=== PATIENT | male | born 1950 | race Asian ===

== ENCOUNTER 2017-01-01 09:19 | Emergency (ER) | payer OTHER, MEDICARE ==
[~2017-01-01] VITALS: Ht 170.2 cm; Wt 90.7 kg
[~2017-01-01 09:19] MED LIST: GABA-531 PO
[2017-01-01 09:20] VITALS: BP 132/80; PULSE 75; RESP 17; TEMP 97.4; O2SAT 98
--- NOTE | 2017-01-01 09:20 | NUR ---
BROUGHT BACK TO BED #8 AND TRIAGED, REPORT GIVEN TO JAZZ
--- NOTE | 2017-01-01 09:28 | NUR ---
DR FLEMING AT BEDSIDE FOR EVALUATION
[2017-01-01] MEDS ORDERED: BACITRACIN 1 GM OINT TP ONE (09:45)
--- NOTE | 2017-01-01 09:55 | NUR ---
Patient given written and verbal discharge instructions and verbalizes understanding. ER MD discussed with patient the results and treatment provided. Given copies of tests performed in ER. Patient in stable condition. ID arm band removed. Patient educated on pain management and to follow up with PMD. Pain Scale 0/10. Opportunity for questions provided and answered.
== END 2017-01-01 09:56 | disposition home or self-care (01) ==
LOC: SED 09:19
DX: Z48.01 Encounter for change or removal of surgical wound dressing (principal)
CPT/HCPCS: 99283

== ENCOUNTER 2018-04-07 23:33 | Emergency (ER) | payer OTHER, MEDICARE ==
[~2018-04-07] VITALS: Ht 170.2 cm; Wt 90.7 kg
[2018-04-07 23:40] VITALS: BP_SYST 136
[2018-04-08 00:30] LABS: BASOPHILS % (AUTO) 0.9 % (0.0-2.0); EOSINOPHILS # (AUTO) 0.1 K/uL (0.0-0.4); EOSINOPHILS % (AUTO) 2.7 % (0.0-4.0); HEMOGLOBIN 14.3 g/dL (14.0-18.0); LYMPHOCYTES # (AUTO) 1.2 K/uL (1.0-5.5); LYMPHOCYTES % (AUTO) 22.2 % (20.5-51.5); MEAN CORPUSCULAR HEMOGLOBIN 31 pg (27-31); MEAN CORPUSCULAR HGB CONC 34 % (32-36); MEAN CORPUSCULAR VOLUME 90 fL (79.0-98.0); MONOCYTES # (AUTO) 0.6 K/uL (0.0-1.0); MONOCYTES % (AUTO) 11.4 % (1.7-9.3); NEUTROPHILS # (AUTO) 3.5 K/uL (1.8-7.7); NEUTROPHILS % (AUTO) 62.8 % (40.0-70.0); PLATELET COUNT (AUTO) 255 K/uL (130-430); RED BLOOD CELL COUNT(AUTO) 4.67 MIL/uL (4.2-6.2); RED CELL DISTRIBUTION WIDTH 13.7 % (9.0-15.0); WHITE BLOOD COUNT (AUTO) 5.4 K/uL (4.8-10.8)
[2018-04-08] MEDS ORDERED: CLINDAMYCIN HCL 150 MG CAPSULE PO ONE (00:30)
[2018-04-08] MEDS ORDERED: IBUPROFEN 800 MG TABLET PO ONE (00:30)
[2018-04-08 00:44] LABS: CALCIUM 8.6 mg/dL (8.4-11.0); CREATININE 1.05 mg/dL (0.55-1.30); POTASSIUM 4.2 mmol/L (3.5-5.1)
[2018-04-08 00:48] LABS: ALBUMIN 3.9 g/dL (3.4-4.8); TOTAL BILIRUBIN 0.7 mg/dL (0.0-1.0)
[2018-04-08 00:49] LABS: PROTHROMBIN TIME 10.4 SECS (9.5-12.5)
[2018-04-08 01:19] VITALS: BP_SYST 129
== END 2018-04-08 01:19 | disposition home or self-care (01) ==
LOC: SED 23:33
DX: L03.114 Cellulitis of left upper limb (principal); R52 Pain, unspecified
CPT/HCPCS: 36415; 71045; 80053; 84550-TC; 85025; 85610-TC; 85730-TC; 99285

== ENCOUNTER 2020-08-06 16:12 | Inpatient (IN) | payer OTHER, MEDICARE, SELFPAY ==
[2020-08-06] VITALS (9 sets, daily range): BP systolic 74–142
[~2020-08-06] VITALS: Ht 165.1 cm; Wt 83.9 kg
--- NOTE | 2020-08-06 16:12 | NUR ---
Placed in room 1. Placed on personnel monitor, blood pressure machine and pulse oximeter. To gown for exam. Side rails up. Report given to OMAR Galvan.
--- NOTE | 2020-08-06 16:13 | NUR ---
PT BIB ACLS AFTER INGESTING ROUNDUP WEED KILLER. PATIENT PLACED ON DIETARY SERVICES DIRECTOR, RT TONY AT , SUCTIONED ORAL SECRETIONS. PER EMS PATIENT DRANK HALF A BOTTLE OF ROUNDUP WEED KILLER(35 FLUID OZ. BOTTLE).
--- NOTE | 2020-08-06 16:13 | NUR ---
POISON CONTROL CONTACTED SPOKE WITH JENNIFER. INFORRMED JENNIFER PT INGESTED HALF A BOTTLE(35 OUNCE BOTTLE) OF ROUND-UP, ATTEMPTING SUICIDE. PER JENNIFER: "CONSIDER INTUBATION, ADMINISTER SUPPORT CARE, CONSULT GI, MONITOR CARDIAC RHYTHM. MADE DR WOLFE AWARE OF POISION CONTROL RECOMENDATIONS.
--- NOTE | 2020-08-06 16:15 | NUR ---
FAMILY ARRIVED TO WAITING AREA. PER , PT INGESTED ROUNDUP 2 HOURS AGO SUICIDE ATTEMPT.
--- NOTE | 2020-08-06 16:17 | NUR ---
Patient not known to be of DNR status. Patient medicated with 20 mg of ETOMODATE for sedation prior to placement of ET tube. Respiratory therapy at bedside prior to placement. Size 7.5 ET tube placed by DR WOLFE. Cuff inflated with air PER RT JIMENEZ. Auscultation of breath sounds over bilateral chest wall. ET tube secured with NOLASCO . O2 sats 98% pulse ox. PCXR ordered to check tube placement.
--- NOTE | 2020-08-06 16:20 | NUR ---
SUCCESSFUL INTUBATION BY DR WOLFE. ET TUBE 7.5 23CM@LIP. POSITIVE COLOR CHANGE ON CO2 DETECTOR. 98% HR79 RR11 BO148/81
--- NOTE | 2020-08-06 16:25 | NUR ---
Witnessed Propofol drip started at 5 mcg/kg/min.
--- NOTE | 2020-08-06 16:25 | NUR ---
IV PROPOFOL STARTED PER PROTOCOL 5 MCG/KG/MIN
[2020-08-06] MEDS ORDERED: TAMS-11 PO (16:28)
[2020-08-06] MEDS ORDERED: FLUD0.1T PO (16:28)
[2020-08-06] MEDS ORDERED: EZET10TA30 PO (16:28)
[2020-08-06] MEDS ORDERED: METO-540 PO (16:28)
[2020-08-06] MEDS ORDERED: FINA5TAB11 PO (16:28)
[2020-08-06] MEDS ORDERED: LORA-259 PO (16:28)
[2020-08-06] MEDS ORDERED: LOSA50TA28 PO (16:28)
[2020-08-06] MEDS ORDERED: ATOR10TA68 PO (16:28)
--- NOTE | 2020-08-06 16:28 | NUR ---
Medication reconciliation completed with information provided by EMS. Any prior medication reconciliation on file was reviewed and corrected.
[2020-08-06] MEDS ORDERED: NACL 0.9% 1,000 ML IV ONE ×2 (16:30→18:00)
[2020-08-06] MEDS ORDERED: PROPOFOL DRIP 100 ML IV ONE ×2 (16:30→16:44)
--- NOTE | 2020-08-06 16:30 | NUR ---
Witnessed Propofol drip titrated to 10 mcg/kg/min.
--- NOTE | 2020-08-06 16:30 | NUR ---
PT ATTEMPTING TO GET OUT OF BED. IV PROPOFOL INCREASED PER PROTOCOL TO 10 MCG/KG/MIN
--- NOTE | 2020-08-06 16:35 | NUR ---
PT ATTEMPTING TO GET OUT OF BED. IV PROPOFOL INCREASED PER PROTOCOL TO 15 MCG/KG/MIN
--- NOTE | 2020-08-06 16:35 | NUR ---
Witnessed Propofol drip titrated to 15 mcg/kg/min.
[2020-08-06 16:40] LABS: BILIRUBIN,URINE NEGATIVE (NEGATIVE); BLOOD, URINE 2+ (NEGATIVE); CLARITY/URINE CLEAR (CLEAR); COLOR,URINE YELLOW (YELLOW); GLUCOSE,URINE NEGATIVE (NEGATIVE); KETONES,URINE NEGATIVE (NEGATIVE); LEUKOCYTE ESTERASE ,URINE NEGATIVE (NEGATIVE); NITRITE, URINE NEGATIVE (NEGATIVE); PROTEIN URINE 2+ (NEGATIVE); UROBILINOGEN,URINE 0.2 (0.2-1.0)
--- NOTE | 2020-08-06 16:40 | NUR ---
PT ATTEMPTING TO GET OUT OF BED. IV PROPOFOL INCREASED PER PROTOCOL TO 20 MCG/KG/MIN
--- NOTE | 2020-08-06 16:40 | NUR ---
Witnessed Propofol drip titrated to 20 mcg/kg/min.
--- NOTE | 2020-08-06 16:45 | NUR ---
Witnessed Propofol drip titrated to 25 mcg/kg/min.
--- NOTE | 2020-08-06 16:45 | NUR ---
Ac mauricio in EDM - 08/06/20 at 1706 by SDEDTD PT ATTEMPTING TO SIT UP. IV PROPOFOL INCREASED PER PROTOCOL TO 30 MCG/KG/MIN
--- NOTE | 2020-08-06 16:45 | NUR ---
PT ATTEMPTING TO SIT UP. IV PROPOFOL INCREASED PER PROTOCOL TO 25 MCG/KG/MIN
--- NOTE | 2020-08-06 16:50 | NUR ---
Witnessed Propofol drip titrated to 30 mcg/kg/min.
--- NOTE | 2020-08-06 16:50 | NUR ---
PT ATTEMPTING TO SIT UP. IV PROPOFOL INCREASED PER PROTOCOL TO 30 MCG/KG/MIN
--- NOTE | 2020-08-06 16:55 | NUR ---
PT CONTINUES TO ATTEMPT TO SIT UP, IV PROPOFOL INCREASED PER PROTOCOL TO 35 MCG/KG/MIN
--- NOTE | 2020-08-06 16:55 | NUR ---
Witnessed Propofol drip titrated to 35 mcg/kg/min.
--- NOTE | 2020-08-06 17:00 | NUR ---
Witnessed Propofol drip titrated to 40 mcg/kg/min.
--- NOTE | 2020-08-06 17:00 | NUR ---
PT REACHING FOR ET TUBE. IV PROPOFOL INCREASED PER PROTOCOL TO 40 MCG/KG/MIN
[2020-08-06 17:05] LABS: RBC,URINE 0-3 /HPF (0-3); WBC,URINE 0-3 /HPF (0-3)
[2020-08-06 17:06] LABS: BACTERIA,URINE FEW /HPF (None Seen); MUCUS,URINE None Seen /LPF (None Seen)
--- NOTE | 2020-08-06 17:15 | NUR ---
Witnessed Propofol drip titrated to 35 mcg/kg/min.
--- NOTE | 2020-08-06 17:15 | NUR ---
IV PROPOFOL DECREASED PER PROTOCOL TO 35 MCG/KG/MIN
--- NOTE | 2020-08-06 17:33 | NUR ---
Belongings list completed.
[2020-08-06 17:53] LABS: BASOPHILS % (AUTO) 0.1 % (0.0-2.0); EOSINOPHILS % (AUTO) 0.1 % (0.0-4.0); HEMOGLOBIN 13.8 g/dL (14.0-18.0); LYMPHOCYTES # (AUTO) 0.4 K/uL (1.0-5.5); LYMPHOCYTES % (AUTO) 2.8 % (20.5-51.5); MEAN CORPUSCULAR HEMOGLOBIN 28 pg (27-31); MEAN CORPUSCULAR HGB CONC 32 % (32-36); MEAN CORPUSCULAR VOLUME 87 fL (79.0-98.0); MONOCYTES # (AUTO) 0.4 K/uL (0.0-1.0); MONOCYTES % (AUTO) 2.7 % (1.7-9.3); NEUTROPHILS # (AUTO) 13.2 K/uL (1.8-7.7); NEUTROPHILS % (AUTO) 94.3 % (40.0-70.0); PLATELET COUNT (AUTO) 222 K/uL (130-430); RED BLOOD CELL COUNT(AUTO) 4.94 MIL/uL (4.2-6.2); RED CELL DISTRIBUTION WIDTH 16.6 % (9.0-15.0)
[2020-08-06] MEDS ORDERED: PIPERACILLIN/TAZO 3.375 GM in NS 50 ML IV ONE (18:00)
[2020-08-06 18:04] LABS: ANION GAP 18 (5-15); GLUCOSE 135 mg/dL (70-99); POTASSIUM 5.2 mmol/L (3.5-5.1); UREA NITROGEN, BLOOD 17 mg/dL (8-21)
[2020-08-06 18:13] LABS: ALBUMIN 3.8 g/dL (3.4-4.8); CHLORIDE 85 mmol/L (98-107); SODIUM SERUM 117 mmol/L (136-145); TOTAL BILIRUBIN 2.1 mg/dL (0.0-1.0)
[2020-08-06 18:14] LABS: CALCIUM 6.6 mg/dL (8.4-11.0)
[2020-08-06] MEDS ORDERED: ALBUTEROL SULFATE 0.083% 2.5 MG/3 ML VIAL.NEB INH PRN (18:15)
[2020-08-06] MEDS ORDERED: LORazepam 2 MG/ML VIAL IVP PRN (18:15)
[2020-08-06] MEDS ORDERED: ONDANSETRON HCL 4 MG/2 ML VIAL IVP PRN (18:15)
--- NOTE | 2020-08-06 18:15 | NUR ---
Witnessed Propofol drip titrated to 30 mcg/kg/min.
--- NOTE | 2020-08-06 18:15 | NUR ---
IV PROPOFOL DECREASED PER PROTOCOL TO 30 MCG/KG/MIN
--- NOTE | 2020-08-06 18:15 | NUR ---
Ac mauricio in ED - 08/06/20 at 1824 by SDEDTD IV PROPOFOL DECREASED PER PROTOCOL TO 25 MCG/KG/MIN
--- NOTE | 2020-08-06 18:20 | NUR ---
Witnessed Propofol drip titrated to 25 mcg/kg/min.
--- NOTE | 2020-08-06 18:20 | NUR ---
IV PROPOFOL DECREASED PER PROTOCOL TO 25 MCG/KG/MIN
[2020-08-06] MEDS ORDERED: PIPERACILLIN/TAZOBACTAM 3.375 GM/VIAL (ZOSYN) IV ONE (18:21)
--- NOTE | 2020-08-06 18:25 | NUR ---
IV LEVOPHED DRIP STARTED PER ORDER
[2020-08-06] MEDS ORDERED: NOREPINEPHRINE BITARTRATE 4 MG in NS 246 ML IV ONE (18:30)
[2020-08-06 18:43] LABS: ALANINE AMINOTRANSFERASE 56 U/L (12-78)
[2020-08-06] MEDS ORDERED: NOREPINEPHRINE 4 MG/4 ML VIAL IV ONE (18:47)
--- NOTE | 2020-08-06 18:47 | NUR ---
Patient will be admitted to care of DR BROWN. Admitted toICU unit. Will go to room 3. Belongings list completed. Complete and up to date summary report printed. SBAR report to be given at bedside with opportunity for questions. Transfer to ICU via ACLS protocol. Licensed nurse present. IV present no signs or symptoms of infiltration.
--- NOTE | 2020-08-06 19:05 | NUR ---
ADMIT TO ICU Pt admitted to ICU bed 3 via ACLS protocol with RN and RT. Pt hooked up to monitors for monitoring. Pt restless and making spontaneous movements. Pt intubated and on ventilator. Levophed gtt and Diprivan gt infusing through PIVs. NGT and Castañeda catheter in place and draining to gravity. Belongings at bedside. Bed locked and in lowest position for safety. Will continue to monitor and assess.
[2020-08-06] MEDS: D5NS 1,000 ML IV SCH (19:30)
[2020-08-06 19:56] LABS: ASPARTATE AMINOTRANSFERASE 59 U/L (10-37)
[2020-08-06 19:59] LABS: CREATININE 0.82 mg/dL (0.55-1.30); GFR AFRICAN AMERICAN 119 mL/min (>90)
--- NOTE | 2020-08-06 20:03 | NUR ---
PAGED DR. ESPARZA PAGER # [phone]
--- NOTE | 2020-08-06 20:15 | NUR ---
PAGED DR. DURBIN [phone] NO ANSWERING SERVICE PHONE RINGS WITH NO ANSWER
--- NOTE | 2020-08-06 20:18 | NUR ---
CALL BACK: Called Dr. Dsouza back for telephone/verbal order read back of PRN morphine Q4 hrs.
[2020-08-06] MEDS ORDERED: MORPHINE 4 MG/ML INJ. SYRINGE IVP PRN (20:30)
--- NOTE | 2020-08-06 20:53 | NUR ---
POISON CONTROL SPOKE WITH BRADY OF POISON CONTROL AT THIS TIME WHO REQUESTED UPDATE ON PT CONDITION. UPDATES PROVIDED. PER BRADY IT IS RECOMMENDED TO CONTINUE AGGRESSIVE SUPPORTIVE CARE. WATCH FOR SEIZURE ACTIVITY IT IS LIKELY WITH INGESTION OF ROUND UP HERBICIDES. PT IS ALSO AT HIGH RISK FOR GI JIMÉNEZ/ULCERS SO GI CONSULT IS RECOMMENDED. WILL CARRY OUT RECOMMENDED ACTIONS AND CONTINUE TO MONITOR PT.
--- NOTE | 2020-08-06 22:34 | NUR ---
PAGED DR. GARZA [phone] PAGER #
[2020-08-06] MEDS ORDERED: PROPOFOL DRIP 100 ML IV PRN (23:00)
[2020-08-06] MEDS: IPRATROPIUM BROM 0.5 MG/2.5 ML VIAL.NEB (ATROVENT) INH SCH ×2 (23:29→23:30)
[2020-08-06] MEDS ORDERED: MIDAZOLAM HCL IN 0.9 % NACL/PF 50 ML IV PRN (23:30)
--- NOTE | 2020-08-06 23:45 | NUR ---
Verbal order received from Dr. Dsouza for administration of 50 mg of Rocuronium IVP. Order carried out as indicated.
[2020-08-06] MEDS ORDERED: MIDAZOLAM HCL IN 0.9 % NACL/PF 50 ML IV ONE (23:58)
--- NOTE | 2020-08-06 23:59 | NUR ---
CONSULT DR. ANABELLA CORREA ROUND UP HERBICIDE [phone] SPOKE WITH JIMENA
[2020-08-07] VITALS (24 sets, daily range): BP systolic 64–141
[2020-08-07] MEDS ORDERED: SODIUM POLYSTYRENE SULFONATE 15 GM/60 ML UDBTL PO ONE
[2020-08-07] MEDS ORDERED: CALCIUM GLUCONATE 2 GM in NS 100 ML IV ONE ×2
[2020-08-07] MEDS ORDERED: PIPERACILLIN/TAZOBACTAM 3.375 GM/VIAL (ZOSYN) IV ONE (00:11)
[2020-08-07] MEDS ORDERED: SODIUM POLYSTYRENE SULFONATE 15 GM/60 ML UDBTL ONE (00:13)
[2020-08-07] MEDS ORDERED: NOREPINEPHRINE 4 MG/4 ML VIAL IV ONE ×11 (00:14→11:15)
--- NOTE | 2020-08-07 00:20 | NUR ---
CODE SHERINE Pt went bradycardic, HR 30s @ 0011. Began CPR and achieved ROSC per ACLS @ 0017, refer to andres scott record.
[2020-08-07] MEDS ORDERED: ROCURONIUM BROMIDE 10 MG/ML (ZEMURON) IV PRN (00:30)
[2020-08-07] MEDS ORDERED: ROCURONIUM BROMIDE 10 MG/ML (ZEMURON) IV ONE ×2 (00:30→08:24)
[2020-08-07] MEDS: PIPERACILLIN/TAZO 3.375/DEX-IS 50 ML IV SCH ×3 (01:06→13:15)
[2020-08-07] MEDS: methylPREDNISolone SOD SUCC/PF 62.5 MG/ML VIAL IVP SCH ×2 (01:06→06:07)
[2020-08-07] MEDS ORDERED: CALCIUM GLUCONATE 1 GM/10 ML VIAL ONE (01:23)
--- NOTE | 2020-08-07 01:35 | NUR ---
Called Avril three times to update about pt's status. Left voicemail and call back number. Will attempt again later.
--- NOTE | 2020-08-07 01:40 | NUR ---
CODE SHERINE Pt went bradycardic, HR 30's, administered Atropine x 1 per ACLS protocol @ 0129. Began CPR and achieved ROSC per ACLS @ 0134, refer to andres scott record.
[2020-08-07] MEDS: NOREPINEPHRINE BITARTRATE 4 MG in NS 246 ML IV PRN ×4 (01:42→04:50)
[2020-08-07] MEDS ORDERED: PROPOFOL DRIP 100 ML IV ONE (02:18)
[2020-08-07] MEDS: IPRATROPIUM BROM 0.5 MG/2.5 ML VIAL.NEB (ATROVENT) INH SCH ×4 (02:58→16:28)
--- NOTE | 2020-08-07 03:14 | NUR ---
FAMILY ONCE AGAIN ATTEMPTED TO CONTACT PTS AT PHONE NUMBER [phone] TO UPDATE FAMILY ON PT CONDITION. AGAIN THERE IS NO ANSWER AND MESSAGE WAS LEFT. WILL AWAIT CALL BACK FROM FAMILY.
--- NOTE | 2020-08-07 03:25 | NUR ---
PAGED DR. GARZA [phone] PAGER #
--- NOTE | 2020-08-07 04:25 | NUR ---
DR. DURBIN [phone] ANSWERING EXCHANGE DOES NOT ANSWER THE PHONE
--- NOTE | 2020-08-07 04:52 | NUR ---
PAGED DR. GARZA [phone] PAGER #
--- NOTE | 2020-08-07 05:09 | NUR ---
CONSULT DR. BEJARANO SEPSIS [phone] SPOKE WITH JIMENA
[2020-08-07] MEDS ORDERED: DOPamine PREMIX 250 ML IV PRN (05:45)
[2020-08-07] MEDS ORDERED: ATROPINE SULFATE 1 MG/10 ML SYRINGE IVP PRN (05:45)
[2020-08-07] MEDS: D5NS 1,000 ML IV SCH ×2 (06:06→14:15)
[2020-08-07] MEDS ORDERED: DOPamine PREMIX 250 ML IV ONE (06:16)
[2020-08-07] MEDS: NOREPINEPHRINE BITARTRATE 8 MG in NS 242 ML IV PRN ×2 (06:35→08:30)
--- NOTE | 2020-08-07 07:15 | NUR ---
CLOSING NOTE Endorsed SBAR report to oncoming RN for continuity of care. Pt in bed, lethargic. No s/s of distress noted. Pt is on Dopamine gtt, Levophed gtt and D5NS @ 100 ml/hr. Castañeda catheter draining to gravity, NGT to intermittent suction.
--- NOTE | 2020-08-07 07:20 | NUR ---
Opening Note Received bedside report from endorsing RN for continuation of care. Received patient intubated and lethargic. No signs or symptoms of acute distress noted. RT at bedside. Fall and safety precautions in place.
[2020-08-07 07:41] LABS: ALBUMIN 3.1 g/dL (3.4-4.8); CALCIUM 8.3 mg/dL (8.4-11.0); CREATININE 1.84 mg/dL (0.55-1.30); PHOSPHORUS 5.4 mg/dL (2.7-4.5); POTASSIUM 4.5 mmol/L (3.5-5.1); TOTAL BILIRUBIN 0.6 mg/dL (0.0-1.0)
[2020-08-07 08:00] LABS: BASOPHILS % (AUTO) 0.2 % (0.0-2.0); EOSINOPHILS % (AUTO) 0.1 % (0.0-4.0); HEMATOCRIT 48.1 % (36-54); HEMOGLOBIN 14.7 g/dL (14.0-18.0); LYMPHOCYTES # (AUTO) 0.8 K/uL (1.0-5.5); LYMPHOCYTES % (AUTO) 14.1 % (20.5-51.5); MEAN CORPUSCULAR HEMOGLOBIN 28 pg (27-31); MEAN CORPUSCULAR HGB CONC 31 % (32-36); MEAN CORPUSCULAR VOLUME 90 fL (79.0-98.0); MONOCYTES # (AUTO) 0.4 K/uL (0.0-1.0); MONOCYTES % (AUTO) 6.6 % (1.7-9.3); NEUTROPHILS # (AUTO) 4.8 K/uL (1.8-7.7); PLATELET COUNT (AUTO) 110 K/uL (130-430); RED BLOOD CELL COUNT(AUTO) 5.34 MIL/uL (4.2-6.2); RED CELL DISTRIBUTION WIDTH 17.2 % (9.0-15.0)
--- NOTE | 2020-08-07 08:45 | NUR ---
Arterial Line Insertion by MD Dr. Campbell at bedside for Arterial Line insertion.
[2020-08-07] MEDS ORDERED: SODIUM BICARBONATE 8.4% JECT 50 MEQ/50 ML SYRINGE IVP ONE (08:50)
[2020-08-07] MEDS ORDERED: ATROPINE SULFATE 1 MG/10 ML SYRINGE IVP ONE ×2 (08:50→16:30)
[2020-08-07] MEDS ORDERED: EPINEPHrine JECT 0.1 MG/ML SYR IVP ONE (08:50)
[2020-08-07] MEDS ORDERED: PANTOPRAZOLE SODIUM 40 MG/VIAL (PROTONIX) IVP SCH (09:00)
[2020-08-07] MEDS ORDERED: ENOXAPARIN SODIUM 40 MG/0.4 ML SYRINGE SUBCUT SCH (09:00)
--- NOTE | 2020-08-07 09:05 | NUR ---
Dr. Campbell at bedside examining patient. New orders received.
[2020-08-07] MEDS ORDERED: SODIUM BICARBONATE 8.4% JECT 100 MEQ in D5W 1,000 ML IVP SCH (09:15)
--- NOTE | 2020-08-07 09:17 | NUR ---
CONSULTATION PAGED/CALLED Reason for Consultation: [] LOW NA Person Who was Notified: [] DR REYNAGA FLIGHT MECHANIC FOR DR DURBIN, CALLED HER ON CELL Consulting Physician: [] DR REYNAGA, FLIGHT MECHANIC FOR GIFTY Supervisor [employer] Specialty: [] NEPHROLOGY Ordering Physician: [] DR Suzie BROWN
--- NOTE | 2020-08-07 09:45 | NUR ---
Dialysis Catheter Placement by MD Dr. Campbell at bedside for dialysis catheter placement.
[2020-08-07] MEDS ORDERED: SODIUM BICARBONATE 8.4% JECT 50 MEQ/50 ML SYRINGE ONE (09:46)
[2020-08-07] MEDS ORDERED: ETOMIDATE 20 MG/ 10 ML VIAL (AMIDATE) IVP ONE (09:55)
[2020-08-07] MEDS ORDERED: SUCCINYLCHOLINE CHLORIDE 20 MG/ML(QUELICIN) IVP ONE (09:55)
--- NOTE | 2020-08-07 10:00 | NUR ---
Dr. Stubbs at bedside examining patient. No new orders.
--- NOTE | 2020-08-07 10:00 | NUR ---
Spoke to Dr. Hsieh regarding consult. Will come in to see patient.
--- NOTE | 2020-08-07 10:10 | NUR ---
Director Of Operations Support/DCP: AIRCRAFT SALES REPRESENTATIVE received a referral from nursing to see patient for suicide risk. AIRCRAFT SALES REPRESENTATIVE phoned family @ [phone] and [phone], left voicemail to call back for DCP.
--- NOTE | 2020-08-07 10:30 | NUR ---
Eufemia Grimaldo here to see patient, with orders carried out.
[2020-08-07] MEDS ORDERED: VASOPRESSIN 100 UNITS in D5W 45 ML IV PRN (11:00)
[2020-08-07] MEDS ORDERED: COMMUNICATION ORDER XX ONE (11:15)
[2020-08-07] MEDS ORDERED: NOREPINEPHRINE BITARTRATE 16 MG in NS 234 ML IV PRN (11:30)
[2020-08-07] MEDS: EPINEPHRINE AMPULE IV PRN ×2 (11:39→13:44)
[2020-08-07] MEDS: NS IV PRN ×2 (11:39→13:44)
--- NOTE | 2020-08-07 12:00 | NUR ---
Family here to see patient. Son called Dr. Campbell to discuss code status.
--- NOTE | 2020-08-07 12:00 | NUR ---
Hemodialysis Hemodialysis being done at bedside by wet pour mixer.
--- NOTE | 2020-08-07 12:05 | NUR ---
Dr. Campbell called in, Patient is now DNR, No more aggressive measures per family. TO/RBO by Dr. Campbell, witnessed by OMAR Sage and myself.
--- NOTE | 2020-08-07 12:28 | NUR ---
Family at Bedside Family at bedside, updated on plan of care and patient status. All questions answered.
--- NOTE | 2020-08-07 13:54 | NUR ---
High Alert Medication BP - 79/45 Patient started on Epinephrine drip @ 0.1 mcg/kg/min. Medication double checked by Chu Thakkar RN and myself.
--- NOTE | 2020-08-07 14:00 | NUR ---
Family at Bedside Family at bedside, updated on plan of care and patient status. All questions answered.
[2020-08-07] MEDS ORDERED: HEPARIN SODIUM,PORCINE 5,000 UNITS/ML VIAL ONE (15:02)
--- NOTE | 2020-08-07 15:15 | NUR ---
Dr. Juan Luis Gibson in to see patient. New orders received.
--- NOTE | 2020-08-07 16:15 | NUR ---
INCREASED FIO2 TO 80% PER MD ESPARZA.
--- NOTE | 2020-08-07 16:20 | NUR ---
Spoke with Dr. Campbell regarding patient's ABG values, new orders received to increase FiO2 to 80% and administer Atropine 0.5 mg IVP once.
[2020-08-07] MEDS ORDERED: ATROPINE SULFATE 0.4 MG/ML VIAL ONE (16:34)
--- NOTE | 2020-08-07 17:40 | NUR ---
Time of Noted patient to be asystole on monitor, no pulses palpable, pupils fixed and dilated, no spontaneous breathing noted. Dr. Mckoy at bedside, pronounced time of .
--- NOTE | 2020-08-07 17:45 | NUR ---
CHAIN OFFBEARER CALLED [facility] Department of [place]anch[employer] Machine Operator called contacted by RN. Spoke with Kathy. Case # [id number]. Estimated arrival time 1999. Family notified by OMAR.
--- NOTE | 2020-08-07 17:46 | NUR ---
MDs Notified All MDs called.
--- NOTE | 2020-08-07 20:11 | NUR ---
POISON CONTROL KRISTI FROM POISON CONTROL CALLED FOR AND UPDATE AT THIS TIME. MADE AWARE THAT PT AT 1740.
[2020-08-07] MEDS ORDERED: HEPARIN SODIUM,PORCINE 5,000 UNITS/ML VIAL SUBCUT SCH (21:00)
== END 2020-08-07 20:25 | disposition expired | DRG 871 ==
LOC: SED 16:12 → SIC 18:27
PROVIDERS: ADMIT Preventive Medicine Preventive Medicine/Occupational Environmental Medicine; ATTEND Preventive Medicine Preventive Medicine/Occupational Environmental Medicine
PROC: 02HV33Z Insertion of Infusion Device into Superior Vena Cava, Percutaneous Approach (ICD-10-PCS; principal; 2020-08-07)
PROC: B548ZZA Ultrasonography of Superior Vena Cava, Guidance (ICD-10-PCS; 2020-08-07)
PROC: 5A1935Z Respiratory Ventilation, Less than 24 Consecutive Hours (ICD-10-PCS; 2020-08-07)
DX: A41.9 Sepsis, unspecified organism (principal); G92 Toxic encephalopathy; J69.0 Pneumonitis due to inhalation of food and vomit; J96.01 Acute respiratory failure with hypoxia; R65.21 Severe sepsis with septic shock; E87.1 Hypo-osmolality and hyponatremia; E87.2 Acidosis; N17.9 Acute kidney failure, unspecified; R45.851 Suicidal ideations; Z99.11 Dependence on respirator [ventilator] status; E16.2 Hypoglycemia, unspecified; E78.5 Hyperlipidemia, unspecified; E87.5 Hyperkalemia; E87.6 Hypokalemia; N40.0 Benign prostatic hyperplasia without lower urinary tract symptoms; G62.9 Polyneuropathy, unspecified; G89.29 Other chronic pain; I25.10 Atherosclerotic heart disease of native coronary artery without angina pectoris; K11.7 Disturbances of salivary secretion; I12.9 Hypertensive chronic kidney disease with stage 1 through stage 4 chronic kidney disease, or unspecified chronic kidney disease; I46.9 Cardiac arrest, cause unspecified; T60.3X1A Toxic effect of herbicides and fungicides, accidental (unintentional), initial encounter; R74.01 Elevation of levels of liver transaminase levels; Y92.89 Other specified places as the place of occurrence of the external cause; N18.9 Chronic kidney disease, unspecified
CPT/HCPCS: 36415; 36600; 71045; 80053; 81000-TC; 82803-TC; 82962; 83605; 83735-TC; 84100-TC; 84295-TC; 84484; 85007; 85025; 85027; 87040-TC; 87070-TC; 87081; 87086; 87205-TC; 90935; 93005; 94002; 94003; 94640; 96361; 96365; 99291; C1751; C1887; C9113; J0171; J0330; J0461; J0610; J1265; J1644; J2543; J2704; J2930; J3490; J7030; J7040; J7042; J7050; J7060; J7613